=== PATIENT | female | born 1975 | race African-American/Black ===

== ENCOUNTER 2024-02-01 11:30 | Inpatient (IN) | payer OTHER ==
[2024-02-01] MEDS: SODIUM CHLORIDE 500 ML IV STA (12:35)
[2024-02-01 12:40] LABS: BASO % 0.2 % (0-2.0); EOS % 0.4 % (0-4.5); HEMATOCRIT 35.9 % (32.4-45.2); HEMOGLOBIN 11.9 GM/dL (10.7-15.3); LYMPH % 16.7 % (8-40); MCH 29.7 pg (25.7-33.7); MCHC 33.1 g/dl (32.0-36.0); MEAN CELL VOLUME 89.9 fl (80-96); MONO % 8.2 % (3.8-10.2); NEUT % 74.5 % (42.8-82.8); PLATELET COUNT 95 10^3/uL (134-434); RDW 14.1 % (11.6-15.6); WHITE BLOOD COUNT 3.9 K/mm3 (4.0-10.0)
[2024-02-01] MEDS ORDERED: ACETAMINOPHEN INJECTION 100 ML ONE (13:13)
[2024-02-01] MEDS ORDERED: ONDANSETRON 4 MG/2 ML VIAL ONE (13:13)
[2024-02-01] MEDS: ONDANSETRON 4 MG/2 ML VIAL IVPUSH ONE (13:19)
[2024-02-01] MEDS: ACETAMINOPHEN 1000 MG/100 ML BAG IVPB ONE (13:19)
[2024-02-01 13:52] LABS: POTASSIUM 3.6 mmol/L (3.5-5.1)
[2024-02-01 13:54] LABS: ALBUMIN 3.2 g/dl (3.4-5.0); BLOOD UREA NITROGEN 15.1 mg/dL (7-18); CALCIUM 8.9 mg/dL (8.5-10.1); MAGNESIUM 2.1 mg/dL (1.8-2.4)
[2024-02-01 13:57] LABS: CREATININE 0.9 mg/dL (0.55-1.3)
[2024-02-01 13:59] LABS: BILIRUBIN,TOTAL 0.5 mg/dL (0.2-1); TOT PROT 7.9 g/dl (6.4-8.2)
[2024-02-01] MEDS ORDERED: FAMOTIDINE 20 MG/50 ML IVPB 20 MG/50 ML MG IVPB ONE (14:14)
[2024-02-01] MEDS: FAMOTIDINE 20 MG/50 ML IVPB 20 MG/50 ML MG IVPB ONE (14:25)
[2024-02-01] MEDS: SODIUM CHLORIDE 0.9% 500 ML INFUS.BAG IV ONE (14:31)
[2024-02-01 14:47] LABS: EPI CELLS 34 /uL (0-25.1); HYALINE CASTS 10 /uL (0-3.1); URINE APPEARANCE CLOUDY; URINE BACTERIA 67 /uL (0-1359); URINE BILIRUBIN NEGATIVE (NEGATIVE); URINE COLOR DK YELLOW; URINE GLUCOSE (UA) NEGATIVE (NEGATIVE); URINE KETONE TRACE (NEGATIVE); URINE LEUK ESTERASE TRACE (NEGATIVE); URINE NITRITE NEGATIVE (NEGATIVE); URINE PROTEIN TRACE (NEGATIVE); URINE WBC 107 /uL (0-25.8)
[2024-02-01 14:59] LABS: URINE RBC 416 /uL (0-23.9)
[2024-02-01] MEDS ORDERED: TAMSULOSIN HCL 0.4 MG CAP ONE (17:46)
[2024-02-01] MEDS: TAMSULOSIN HCL 0.4 MG CAP PO ONE (17:49)
[2024-02-01] MEDS ORDERED: KETOROLAC TROMETHAMINE 15 MG/ML VIAL ONE (18:45)
[2024-02-01] MEDS: KETOROLAC TROMETHAMINE 15 MG/ML VIAL IVPUSH ONE (19:00)
[2024-02-01 19:53] LABS: URINE APPEARANCE CLEAR; URINE COLOR YELLOW
[2024-02-01 19:54] LABS: URINE BILIRUBIN NEGATIVE (NEGATIVE); URINE GLUCOSE (UA) NEGATIVE (NEGATIVE); URINE KETONE NEGATIVE (NEGATIVE); URINE LEUK ESTERASE NEGATIVE (NEGATIVE); URINE NITRITE NEGATIVE (NEGATIVE); URINE PROTEIN TRACE (NEGATIVE)
[2024-02-01 19:55] LABS: EPI CELLS 20.6 /uL (0-25.1); HYALINE CASTS 7.58 /uL (0-3.1); URINE BACTERIA 257.4 /uL (0-1359); URINE RBC 1394.7 /uL (0-23.9); URINE WBC 218.6 /uL (0-25.8)
[2024-02-02] MEDS ORDERED: ACETAMINOPHEN 1000 MG/100 ML BAG IVPB PRN ×2 (00:38→17:48)
[2024-02-02] MEDS: DEXTROSE 5%-0.45% SALINE 1,000 ML IV SCH ×2 (01:17→20:10)
[2024-02-02] MEDS ORDERED: ONDANSETRON 4 MG/2 ML VIAL ONE (01:24)
[2024-02-02] MEDS: ONDANSETRON 4 MG/2 ML VIAL IVPUSH PRN (01:28)
[2024-02-02 04:57] VITALS: BMI 19.7
[2024-02-02 09:51] LABS: BASO % 0.3 % (0-2.0); EOS % 1.1 % (0-4.5); HEMOGLOBIN 10.3 GM/dL (10.7-15.3); LYMPH % 28.7 % (8-40); MCH 30.2 pg (25.7-33.7); MCHC 33.1 g/dl (32.0-36.0); MEAN CELL VOLUME 91.2 fl (80-96); MEAN PLT VOLUME 11.3 fl (7.5-11.1); MONO % 7.8 % (3.8-10.2); NEUT % 62.1 % (42.8-82.8); PLATELET COUNT 83 10^3/uL (134-434); RDW 13.8 % (11.6-15.6); WHITE BLOOD COUNT 3.5 K/mm3 (4.0-10.0)
[2024-02-02 10:10] LABS: POTASSIUM 3.5 mmol/L (3.5-5.1)
[2024-02-02 10:13] LABS: CALCIUM 8.3 mg/dL (8.5-10.1)
[2024-02-02 10:14] LABS: BLOOD UREA NITROGEN 11.3 mg/dL (7-18)
[2024-02-02 10:17] LABS: CREATININE 0.7 mg/dL (0.55-1.3)
[2024-02-02] MEDS ORDERED: ONDANSETRON 4 MG/2 ML VIAL IVPUSH PRN ×3 (16:22→17:48)
[2024-02-02] MEDS ORDERED: LACTATED RINGERS SOLUTION 1,000 ML IV SCH ×2 (16:30→17:48)
[2024-02-02] MEDS ORDERED: PROPOFOL 20 ML ONE (16:37)
[2024-02-02] MEDS: ceFAZolin SODIUM 1 GM VIAL IVPB ONE (17:04)
[2024-02-03] MEDS: AMINO ACIDS/PROTEIN HYDROLYS 30 ML LIQUID.PKT PO SCH (17:41)
[2024-02-03] MEDS: SULFAMETHOXAZOLE/TRIMETHOPRIM 800MG/160MG D.S. TABLET PO SCH (22:58)
[2024-02-04 08:55] LABS: BASO % 0.4 % (0-2.0); HEMATOCRIT 32.5 % (32.4-45.2); LYMPH % 23.6 % (8-40); MCH 30.1 pg (25.7-33.7); MCHC 33.8 g/dl (32.0-36.0); MEAN CELL VOLUME 89.1 fl (80-96); MEAN PLT VOLUME 10.8 fl (7.5-11.1); MONO % 9.6 % (3.8-10.2); NEUT % 65.4 % (42.8-82.8); PLATELET COUNT 63 10^3/uL (134-434); RBC 3.65 M/mm3 (3.60-5.2); RDW 13.2 % (11.6-15.6); WHITE BLOOD COUNT 2.4 K/mm3 (4.0-10.0)
[2024-02-04 08:58] LABS: INR 1.13 (0.83-1.09)
[2024-02-04 09:11] LABS: POTASSIUM 3.3 mmol/L (3.5-5.1)
[2024-02-04] MEDS: ZINC SULFATE 220 MG CAPSULE (FP) PO SCH (09:22)
[2024-02-04] MEDS: ASCORBIC ACID 500 MG TABLET (FP) PO SCH (09:23)
[2024-02-04 09:27] LABS: CALCIUM 8.1 mg/dL (8.5-10.1)
[2024-02-04 09:28] LABS: ALBUMIN 2.6 g/dl (3.4-5.0); BLOOD UREA NITROGEN 12.4 mg/dL (7-18)
[2024-02-04 09:29] LABS: BILIRUBIN,TOTAL 0.7 mg/dL (0.2-1)
[2024-02-04 09:31] LABS: CREATININE 0.7 mg/dL (0.55-1.3)
[2024-02-04 09:33] LABS: TOT PROT 6.3 g/dl (6.4-8.2)
[2024-02-04] MEDS ORDERED: DEXTROSE 50%-WATER 25 GM/50 ML DISP.SYRIN ONE (11:54)
[2024-02-04] MEDS ORDERED: ONDANSETRON 4 MG/2 ML VIAL ONE ×2 (12:00→14:31)
[2024-02-04] MEDS ORDERED: DEXAMETHASONE SOD PHOSPHATE 4 MG/1 ML VIAL ONE (12:00)
[2024-02-04] MEDS ORDERED: SUCCINYLCHOLINE CHLORIDE 200 MG/10 ML SYRINGE ONE (12:00)
[2024-02-04] MEDS ORDERED: PROPOFOL 20 ML ONE (12:00)
[2024-02-04] MEDS ORDERED: LIDOCAINE HCL/PF 2% SDV 5ML VIAL ONE (12:00)
[2024-02-04] MEDS ORDERED: ROCURONIUM BROMIDE 50 MG/5 ML SYRINGE ONE (12:00)
[2024-02-04] MEDS ORDERED: MIDAZOLAM HCL 2 MG/2 ML SINGLE DOSE VIAL ONE (12:00)
[2024-02-04] MEDS: DEXTROSE 50%-WATER 25 GM/50 ML DISP.SYRIN IVPUSH ONE (12:06)
[2024-02-04] MEDS ORDERED: BUPIVACAINE HCL/PF 0.25% (2.5MG/ML) 10 ML VIAL ONE (12:15)
[2024-02-04] MEDS: KCL 10 MEQ IVPB 10 MEQ/100 ML INFUS.BAG IVPB SCH (12:25)
[2024-02-04] MEDS ORDERED: SUGAMMADEX SODIUM 200 MG/2 ML VIAL ONE (13:05)
[2024-02-04] MEDS ORDERED: SEVOFLURANE 250 ML BTL ONE (13:05)
[2024-02-04] MEDS: cefOXitin SODIUM 2 GM VIAL (RESTRICTED TO ID) IVPB ONE (13:29)
[2024-02-04] MEDS: BUPIVACAINE HCL/PF 0.25% (2.5MG/ML) 10 ML VIAL IJ ONE (13:32)
[2024-02-04] MEDS ORDERED: oxyCODONE HCL 5 MG TABLET PO PRN (13:45)
[2024-02-04] MEDS ORDERED: ACETAMINOPHEN 325 MG TABLET (FP) PO PRN (13:45)
[2024-02-04] MEDS: LACTATED RINGERS SOLUTION 1,000 ML IV SCH (14:18)
[2024-02-04] MEDS: ONDANSETRON 4 MG/2 ML VIAL IVPUSH PRN (14:38)
[2024-02-04] MEDS ORDERED: ACETAMINOPHEN INJECTION 100 ML ONE (14:44)
[2024-02-04] MEDS: ACETAMINOPHEN 1000 MG/100 ML BAG IVPB SCH (14:53)
[2024-02-04] MEDS: DEXTROSE 5%-0.45% SALINE 1,000 ML IV SCH (16:26)
[2024-02-04] MEDS: AMINO ACIDS/PROTEIN HYDROLYS 30 ML LIQUID.PKT PO SCH (18:28)
[2024-02-04 20:27] VITALS: RESP 18
[2024-02-04] MEDS: SULFAMETHOXAZOLE/TRIMETHOPRIM 800MG/160MG D.S. TABLET PO SCH (21:38)
[2024-02-05 06:51] VITALS: TEMP 98.4
[2024-02-05 09:12] LABS: HEMATOCRIT 34.5 % (32.4-45.2); HEMOGLOBIN 11.7 GM/dL (10.7-15.3); LYMPH % 10.2 % (8-40); MCHC 33.8 g/dl (32.0-36.0); MEAN CELL VOLUME 88.6 fl (80-96); MEAN PLT VOLUME 10.5 fl (7.5-11.1); MONO % 8.1 % (3.8-10.2); NEUT % 81.7 % (42.8-82.8); PLATELET COUNT 103 10^3/uL (134-434); RBC 3.89 M/mm3 (3.60-5.2); RDW 13.1 % (11.6-15.6)
[2024-02-05 09:29] LABS: POTASSIUM 3.5 mmol/L (3.5-5.1)
[2024-02-05 09:33] LABS: ALBUMIN 2.8 g/dl (3.4-5.0); BLOOD UREA NITROGEN 10.5 mg/dL (7-18); CALCIUM 8.5 mg/dL (8.5-10.1)
[2024-02-05] MEDS: ZINC SULFATE 220 MG CAPSULE (FP) PO SCH (09:35)
[2024-02-05 09:36] LABS: CREATININE 0.8 mg/dL (0.55-1.3)
[2024-02-05] MEDS: ASCORBIC ACID 500 MG TABLET (FP) PO SCH (09:36)
[2024-02-05 09:37] LABS: BILIRUBIN,TOTAL 0.5 mg/dL (0.2-1)
[2024-02-05 09:39] LABS: TOT PROT 7.5 g/dl (6.4-8.2)
[2024-02-05 13:09] VITALS: BP 117/86; PULSE 63
== END 2024-02-05 17:20 | disposition home or self-care (01) | DRG 263 ==
LOC: JER 11:30 → JERBED 18:09 → J5S 02-02 03:47
PROVIDERS: ADMIT Internal Medicine; ATTEND Internal Medicine
PROC: 0T778DZ Dilation of Left Ureter with Intraluminal Device, Via Natural or Artificial Opening Endoscopic (ICD-10-PCS; 2024-02-02)
PROC: BT1FZZZ Fluoroscopy of Left Kidney, Ureter and Bladder (ICD-10-PCS; 2024-02-02)
PROC: 3E023BZ Introduction of Anesthetic Agent into Muscle, Percutaneous Approach (ICD-10-PCS; 2024-02-04)
PROC: 0FT44ZZ Resection of Gallbladder, Percutaneous Endoscopic Approach (ICD-10-PCS; principal; 2024-02-04 11:00)
DX: K80.12 Calculus of gallbladder with acute and chronic cholecystitis without obstruction (principal); D69.6 Thrombocytopenia, unspecified; E87.0 Hyperosmolality and hypernatremia; G35 Multiple sclerosis; N13.2 Hydronephrosis with renal and ureteral calculous obstruction
CPT/HCPCS: 36415; 74177-TC; 76000-TC-FY; 78226-TC; 80048; 80053; 81003; 82962; 83690; 83735; 84703; 85025; 85610; 85730; 86850; 86900; 86901; 87086; 87186; 88304-TC; 94010; 94760; 97116-GP; 97161-GP; 99285-25; A9537; C1758; C2617; J0131; Q9967

== ENCOUNTER 2024-03-26 04:04 | Day surgery (SDC) | payer OTHER ==
[2024-03-21 13:24] VITALS: BMI 18.6
[~2024-03-26 04:04] MED LIST: LACTATED RINGERS SOLUTION 1,000 ML IV SCH; ONDANSETRON 4 MG/2 ML VIAL IVPUSH PRN; PROMETHAZINE HCL 25 MG/1 ML VIAL IVPB PRN; oxyCODONE HCL 5 MG TABLET PO PRN
[2024-03-26] MEDS ORDERED: LIDOCAINE HCL/PF 2% SDV 5ML VIAL ONE (07:14)
[2024-03-26] MEDS ORDERED: PROPOFOL 40 ML ONE (07:14)
[2024-03-26] MEDS ORDERED: ACETAMINOPHEN INJECTION 100 ML ONE (07:16)
[2024-03-26] MEDS ORDERED: PROPOFOL 20 ML ONE (07:17)
[2024-03-26] MEDS ORDERED: ONDANSETRON 4 MG/2 ML VIAL ONE (07:18)
[2024-03-26] MEDS ORDERED: DEXAMETHASONE SOD PHOSPHATE 4 MG/1 ML VIAL ONE (07:18)
[2024-03-26] MEDS ORDERED: MIDAZOLAM HCL 2 MG/2 ML SINGLE DOSE VIAL ONE (07:23)
[2024-03-26] MEDS ORDERED: SUCCINYLCHOLINE CHLORIDE 200 MG/10 ML SYRINGE ONE (07:28)
[2024-03-26] MEDS: ceFAZolin SODIUM 1 GM VIAL IVPB ONE (08:17)
[2024-03-26] MEDS ORDERED: ceFAZolin SODIUM 1 GM VIAL ONE (08:20)
[2024-03-26 10:04] VITALS: RESP 16; TEMP 97.2
[2024-03-26 10:49] VITALS: BP 119/72; PULSE 51
== END 2024-03-26 11:50 | disposition home or self-care (01) ==
LOC: JASU-SURG 04:04
PROVIDERS: ATTEND Urology
PROC: 0T768DZ Dilation of Right Ureter with Intraluminal Device, Via Natural or Artificial Opening Endoscopic (ICD-10-PCS; 2024-03-26)
PROC: 0TF68ZZ Fragmentation in Right Ureter, Via Natural or Artificial Opening Endoscopic (ICD-10-PCS; principal; 2024-03-26 08:00)
DX: N20.1 Calculus of ureter (principal)
CPT/HCPCS: 81025; 94760; C1747; C1758; C2617; J0131